=== PATIENT | female | born 1935 | race Caucasian/White ===

== ENCOUNTER 2016-12-10 12:20 | Inpatient (IN) | payer MEDICARE ==
--- NOTE | ~2016-12-10 | DS ---
Discharge Summary [facility] [address] [place]. [address] NAME: MERT BORJAS : 33 STATUS : DIS IN PAT#: [id number] AGE: 81 ADM/REG DATE : 12/11/16 MR#: [id number] REPORT SERV DATE: 12/21/16 DICTATED BY: ARABELLA MASTERS DATE: 12/18/16 REPORT STATUS : Draft TRANSCRIBED BY: MODL DATE: 12/18/16 ADMISSION DATE: 12/11/2016 DISCHARGE DATE: 12/17/2016 CONDITION ON DISCHARGE: Stable. DISPOSITION: Discharged to home. DIAGNOSES ON DISCHARGE: Include: 1. Possible transient ischemic attack. 2. Acute cerebrovascular accident has been ruled out after she had a normal MRI, normal other imaging studies, which will be dictated below. 3. Paresthesias of unknown etiology, which have somewhat stabilized. 4. Urinary tract infection with urine culture positive for enterococcus, which may have been responsible for the mild confusion that the patient experienced when she came in. 5. Hypertension, which is stable. 6. Gastroesophageal reflux disease, which is stable. 7. History of breast cancer status post mastectomy-stable. 8. Chronic kidney disease, stage II, which is stable also. BRIEF HOSPITAL COURSE: The patient is an 81-year-old white female patient, who presented with symptoms of mild confusion and was brought in by family because they thought that she was having a stroke. She was admitted to the hospital as an inpatient and a neurology consult was obtained. A B12 and folic acid levels were obtained. Lipid profile was obtained and the patient did get CT scan of the brain and also an MRI with an MRA. All the above results came back consistent with no acute stroke whatsoever. The patient, however, had wudj-sx-pehrtugl dementia consistent with the brain atrophy that all the above tests showed. Neurology decided to go ahead and do a 24-hour EEG on this patient. The EEG came back completely normal with no evidence of any seizure activity or any other focal abnormalities. Neurology then decided to do a lumbar puncture, which also was non-equivocal and nondiagnostic at this time. However, during the workup, it was discovered that the patient had a urinary tract infection with urine culture positive for enterococcus for which she was treated while in the hospital. Anyway during hospitalization with symptomatic and supportive care, her mental status improved significantly. Hence, she is being sent home after resolution of her confusion and she is almost back at baseline. Son, however, reports mild episodes of this off and on and thinks that this could be dementia; however, the patient does have a neurologist, Dr. Kemi Banks to follow up with as an outpatient too. Hence, she is being sent home after stabilizing and treating with supportive and symptomatic care and all the other workup with the following medications: Relafen 250 mg once a day, Lialda or mesalamine 1.2 g p.o. daily, Toprol-XL 25 mg p.o. daily, Protonix 40 mg p.o. daily, aspirin 81 mg p.o. daily, multivitamins one tablet p.o. daily, Plavix 75 mg p.o. daily, lisinopril 10 mg p.o. daily, and levofloxacin 500 mg p.o. daily to complete the course of her antibiotics for the enterococcal UTI. Also of note in her discharge diagnosis is to be noted history of Crohn disease in the past, which is why the patient is on mesalamine. However, this is not the reason for Discharge Summary [address] [address] NAME: MERT BORJAS : 33 STATUS : DIS IN PAT#: [id number] AGE: 81 ADM/REG DATE : 12/11/16 MR#: [id number] REPORT SERV DATE: 12/21/16 DICTATED BY: ARABELLA MASTERS DATE: 12/18/16 REPORT STATUS : Draft TRANSCRIBED BY: MODL DATE: 12/18/16 hospitalization or admission to the hospital this time and this Crohn disease is very well controlled with Lialda and has not flared up at this time, it is to be noted. The most recent lab results I have on this patient include an ammonia level that is normal at 25 and as mentioned above, lumbar puncture that got a normal CSF results. Electrolyte profile that shows sodium of 140, potassium 4.3, BUN of 19, creatinine of 1.2. Hemoglobin and hematocrit that are stable at 13.8 and 40.1. Platelet count is slightly low at 139. WBC count is normal at 4.9. Urine culture as mentioned above grew greater than 100,000 colony count per mL of enterococcus, which is reason for treating continuously with Levaquin to finish the course of antibiotics. The patient also states that she will follow up with her PCP and bring up the issue of recurrent UTIs as an outpatient for which she may want to be referred to a urologist. As mentioned above, imaging studies include brain CT with contrast, MRI of the brain, and MRA and EEG, which have all come back with no acute abnormalities. Also of note, her sedimentation rate has come back normal at 11 and her TSH has come back normal at 1.9, and her hemoglobin A1c is also normal at 5.3. Lipid profile shows an LDL of 90. HDL is 45 and triglycerides 155. CK-MB, folic acid, and B12 were all normal. Troponin I is also normal. So, she is being sent home in stable condition and I have spent about 40 minutes in coordinating discharge care of this patient, including iwdy-nk-lzti encounter and summarizing this discharge. FLORA/MALISSA Arabella Masters M.D. / [id number] CC: Sarah Bernstein M.D.
--- NOTE | ~2016-12-10 | HP ---
History And Physical [place] [id number] [facility] [place]. [address] NAME: MERT BORJAS : 33 STATUS : ADM IN PAT#: [id number] AGE: 81 ADM/REG DATE : 12/10/16 MR#: [id number] REPORT SERV DATE: 12/10/16 DICTATED BY: POP DAVIS DATE: 12/10/16 REPORT STATUS : Draft TRANSCRIBED BY: MALISSA DATE: 12/10/16 DATE OF ADMISSION: 12/10/2016 NEUROLOGIST: Kemi Banks M.D. GI: Greg Galvez M.D. CHIEF COMPLAINT: "I have been having spells again." HISTORY OF PRESENT ILLNESS: An 81-year-old white female with a history of possible TIA; hypertension; diverticular disease; history of breast cancer, status post left mastectomy, now in remission, presents to the ER after having several spells. She describes these spells as having a tingling sensation. Her noted that she had some right upper extremity weakness yesterday that eventually resolved, but he does not know how long it took for her right arm to get back to fully functioning. At that time, she did not seek medical attention. She says that she has been on the couch for the past couple of days and she says that she has a hard time getting up; however, she was able to ambulate herself out of the house and into the emergency room today without any issues. The patient is accompanied by her and two other friends and two friends in the room. One of her friends noted that she had some facial tingling, that lasted for about 4 minutes, that had occurred while she was in the ER. She also has tingling in her legs, that eventually go away. She said she had an episode of a TIA two years ago and at [facility], she was diagnosed with a possible TIA at [place]. She says that she got a CT scan of her head done, but is not sure if she had an MRI done. She finally followed up with Dr. Banks about a month ago and the patient states that she was going to review her imaging and her labs and get back to her. She has not had an MRI done recently that I am aware of. She thinks she may have had one done at [place] and [facility], but is not sure. Her friend says that she has been having some slurred speech. During my interview, there were absolutely no neurological deficits. She does take aspirin and Plavix daily. Of note, has a reaction to Crestor, which causes her to have cramps. She has not notified Dr. Boyce of her neurological complaints. She denies any fever, chills, nausea, vomiting, chest pain, or shortness of breath. PAST MEDICAL HISTORY: 1. Hypertension. 2. Diverticular disease. 3. Hemorrhoids. 4. Breast cancer. PAST SURGICAL HISTORY: Mastectomy. No chemotherapy or radiation treatment. FAMILY HISTORY: Her father of a stroke at the age of 93. Her sister has leg problems. SOCIAL HISTORY: She is . She has two children. She is for 61-62 years. Denies any drinking or illegal drugs. History And Physical [address] [address] NAME: MERT BORJAS : 33 STATUS : ADM IN [facility]#: [id number] AGE: 81 ADM/REG DATE : 12/10/16 MR#: [id number] REPORT SERV DATE: 12/10/16 DICTATED BY: POP DAVIS DATE: 12/10/16 REPORT STATUS : Draft TRANSCRIBED BY: MALISSA DATE: 12/10/16 PHYSICAL EXAMINATION: VITAL SIGNS: Blood pressure is 181/74, temperature is 97.2, pulse is 85, respirations 21, and saturating 97% on room air. GENERAL: The patient is in no acute distress, alert and oriented x3, very pleasant. HEENT: Normocephalic and atraumatic head. Extraocular muscles are intact. Oropharynx is clear. NECK: Supple. No JVD. CARDIAC: Regular rhythm. No murmurs, rubs, or gallops. PULMONARY: Clear to auscultation bilaterally. ABDOMEN: Soft, nontender, and nondistended. Positive bowel sounds. EXTREMITIES: Show no clubbing, cyanosis, or edema. NEUROLOGIC: No focal deficits. SKIN: Warm and dry. PSYCHIATRIC: The patient is cooperative. Mood is appropriate. LABORATORY DATA: Labs show a white blood cell count 6.6, hemoglobin 14.1, and platelet 170. Creatinine 1.41. Troponin is negative. Chest x-ray shows cardiomegaly. CT scan of the brain without contrast shows excellent appearance of the brain for age with mild volume loss and no acute findings. EKG shows sinus rhythm, left bundle-branch block. IMPRESSION: 1. Possible transient ischemic attack. 2. Paresthesias of unknown etiology. 3. Hypertension. 4. Reflux. 5. History of breast cancer, status post mastectomy, in remission. 6. Possible chronic kidney disease, stage III versus acute kidney injury. PLAN: 1. The plan is to do an MRI of her brain stroke protocol. 2. She already had an echocardiogram six months ago, no need to repeat at this time. She had a nuclear stress test done in 2014, which showed no evidence of ischemia with a preserved ejection fraction. We will consult Neurology for further evaluation. We will obtain a B12 and folic acid level. Continue her aspirin and Plavix and check a lipid panel. We will try to obtain records Dr. Banks's office. 3. The patient is a DNR/DNI. We will admit her to obs, pending MRI results, likely to go home the following day. BENI/MALISSA Pop Davis MD / [id number] History And Physical [address] [address] NAME: MERT BORJAS : 33 STATUS : ADM IN [facility]#: [id number] AGE: 81 ADM/REG DATE : 12/10/16 MR#: [id number] REPORT SERV DATE: 12/10/16 DICTATED BY: POP DAVIS DATE: 12/10/16 REPORT STATUS : Draft TRANSCRIBED BY: MODL DATE: 12/10/16 CC: MD Rashad Cui M.D. Adele Ackell, M.D.
--- NOTE | ~2016-12-10 | CN ---
Consultation Report [facility] [address] [place]. [address] NAME: MERT BORJAS : 33 STATUS : ADM Alicia PAT#: [id number] AGE: 81 ADM/REG DATE : 12/10/16 MR#: [id number] REPORT SERV DATE: 12/11/16 DICTATED BY: JANNA HAWTHORNE DATE: 12/11/16 REPORT STATUS : Draft TRANSCRIBED BY: MODNash DATE: 12/11/16 NEUROLOGY CONSULTATION DATE OF CONSULTATION: 12/11/2016 REASON FOR CONSULTATION: Possible stroke. HOSPITALIST: Johnson Carbone MD NEUROLOGIST: Kemi Banks M.D. HISTORY OF PRESENT ILLNESS: The patient is an 81-year-old female who was admitted to the hospital yesterday evening. She stated that she had one of her episodes prior to admission. These episodes started approximately two years ago and have increased in frequency, but not necessarily intensity. Now, she is having approximately one week. These episodes consist of sudden onset of numbness in either the right or left arm and the ipsilateral side of her face. They lasts approximately two to three minutes and then resolves. She has associated dysarthria and blurred vision. She also mentions that she has had a dull headache every day for the last week. When questioned more extensively, she does have a history of migraines in her younger years. She denies any balance issues. She denies any weakness in the extremities. She also denies any photophobia, phonophobia, nausea, or vomiting. The patient mentions that she does not know when these episodes are going to start. She has no aura. After the episodes are over, she returns back to her "normal self." PAST MEDICAL HISTORY: TIA, hypertension, diverticulitis, breast cancer (mastectomy) but no chemo or radiation, hemorrhoids, GERD, possible chronic kidney disease, and history of migraines. PAST SURGICAL HISTORY: Bilateral mastectomy. HOME MEDICATION LIST: Includes aspirin 81 mg daily, calcium with vitamin D daily, Plavix 75 mg daily, Flonase nasal spray daily, Prinivil 10 mg daily, Lialda 1.2 g daily, Toprol-XL 25 mg daily, one multivitamin daily, Relafen 250 mg daily, Protonix 40 mg daily, and Metamucil one packet daily. ALLERGIES: SULFA, MACROBID, AND CRESTOR. SOCIAL HISTORY: The patient is . She has two children. She does not smoke, drink, or use recreational drugs. FAMILY HISTORY: The patient's mother at age of 66 from a brain tumor. Her father at the age of 96 from stroke. She has one sister who is relatively healthy. REVIEW OF SYSTEMS: Consultation Report [address] [place]. [address] NAME: MERT BORJAS : 33 STATUS : ADM Alicia PAT#: [id number] AGE: 81 ADM/REG DATE : 12/10/16 MR#: [id number] REPORT SERV DATE: 12/11/16 DICTATED BY: JANNA HAWTHORNE DATE: 12/11/16 REPORT STATUS : Draft TRANSCRIBED BY: MALISSA DATE: 12/11/16 Please refer to HPI for pertinent positives. PHYSICAL EXAMINATION: VITAL SIGNS: The patient is an 81-year-old female, who stands 5 feet 3 inches tall, and weighs 150 pounds. She is afebrile. Heart rate 82, respiratory rate 20, O2 saturations on room air 96%, blood pressure 118/57. NEURO: The patient is alert and oriented x4, pleasant, communicates appropriately. Affect is bright. Speech is clear. Language is fluent. Pupils are 3 mm, PERRLA. Cranial nerves II through XII are intact. She can move all extremities x4. Cmqxgr-lu-rsnr, no ataxia. Undb-oa-tcbb, no ataxia. No pronator drift. Upper extremity strength 4/5. Upper DTRs 2+ bilaterally. No sensory deficits. Lower extremity strength is 4/5. Patellar reflexes 2+ bilaterally. Downgoing toes. No sensory deficits. NECK: No carotid bruits, JVD, or thyromegaly. CHEST: Lung sounds clear. CARDIAC: Regular rate and rhythm. CBC is normal. BMP normal except the creatinine is 1.41. Cholesterol values are somewhat elevated. CT of the brain, no acute changes. NIH stroke scale is 0. ASSESSMENT/PLAN: 1. Possible transient ischemic attack or vertebral basilar insufficiency. At this point, the patient will undergo an MRI of the brain without gadolinium and an MRA of the head and neck with gadolinium. She will also have an echocardiogram. She will be continued on aspirin 325 mg, Plavix 75 mg, and Lipitor 80 mg. At this point, she will not need physical therapy, occupational therapy, speech therapy, or will not require rehab. 2. Possible seizure, although this is less likely. She will undergo an EEG prior to her MRI since she will need to be sedated for claustrophobia. 3. Daily headache. The patient will be administered p.r.n. Tylenol. Lab work will be checked which would include a CPK and sedimentation rate to rule out giant-cell arteritis and again she will undergo imaging. Thank you again for including us in consultation. We will continue to follow with you. REILLY/MALISSA Janna Hawthorne, ACNP-BC / [id number] CC: MD Rashad Cui M.D. Consultation Report [address] [address] NAME: MERT BORJAS : 33 STATUS : ADM Alicia PAT#: [id number] AGE: 81 ADM/REG DATE : 12/10/16 MR#: [id number] REPORT SERV DATE: 12/11/16 DICTATED BY: JANNA HAWTHORNE DATE: 12/11/16 REPORT STATUS : Draft TRANSCRIBED BY: MALISSA DATE: 12/11/16 Kemi Banks M.D.
--- NOTE | ~2016-12-10 | EEG ---
Electroencephalogram [facility] [address] [facility] [place]. [address] NAME: MERT BORJAS : 33 STATUS : DIS IN PAT#: [id number] AGE: 81 ADM/REG DATE : 12/11/16 MR#: [id number] REPORT SERV DATE: 12/20/16 DICTATED BY: KALA EMERY DATE: 12/20/16 REPORT STATUS : Draft TRANSCRIBED BY: MODL DATE: 12/20/16 EEG NUMBER: [id number]. DATE OF EEG: From 12/15/2016 through 12/16/2016. REASON FOR REQUEST: Recurrent episodes of possible seizures, episodes of abnormal behavior and slurred speech, stereotypy. The patient's EEG was reviewed. She was noted to be alert, drowsy, and asleep throughout the study. Collodion was utilized to fixate the electrodes. This study was of excellent technical quality. The patient continuous clinical research monitor was placed and reviewed in addition to the patient's EEG activity. The background activity consisted of moderate to lower voltage, relatively well-organized, nine cycles per second located in the posterior head regions. This activity appeared to attenuate at times with the eye opening maneuvers. Moderate amount of movement and muscle artifact was present. For most part, symmetrical eye blinking artifact was symmetrical. The patient's clinical research monitor showed widened QRS complex ? Pacemaker artifact. No cardiac arrhythmias were detected. The patient's EEG activity remains bilaterally synchronous. No focal or paroxysmal abnormalities were seen during the full 24-hour recording. During sleep appropriate amount of slower activity was seen distributed symmetrically. The patient did not go to stage 3 or 4 sleep. No paroxysmal epileptiform activity was seen. Video recording was utilized. The patient for the most part remained resting in bed except for several episodes of using a portable-potty chair at her bedside. Family member was noted to be present in the room intermittently, noted on the video monitor. This was an extensive review of the 24-hour EEG recording. Appropriate amount of bitemporal slowing was seen during drowsiness, a few episodes of symmetrical sleep spindles was noted in light sleep. Vertex sharp activity and K-complexes were noted. However, for the most part, the EEG remained symmetrical with no evidence of paroxysmal activity. Rare episode of slowing noted in the left frontal temporal region. After recording time of 20 hours 30 minutes and 06 seconds, on 12/16/2016 at 09:24:44. This however does not represent activity too, definitively state that the patient has epileptiform discharges. IMPRESSION: THIS EEG IS ESSENTIALLY NORMAL FOR THE PATIENT'S AGE . NO PAROXYSMAL EPILEPTIFORM ACTIVITY WAS SEEN DURING THIS STUDY. DROWSINESS, LIGHT SLEEP, AND AWAKE PORTION OF THE RECORDING SHOWED NO EVIDENCE OF PAROXYSMAL OR EPILEPTIFORM DISCHARGES. THE PATIENT'S PROPELLANT CHARGE LOADER SHOWED SINUS RHYTHM, RATE BETWEEN 60 TO 72 BEATS PER MINUTE. CLINICAL CORRELATION IS RECOMMENDED. RODGER/MALISSA Kala Emery MD / [id number] CC: Nishi Soto M.D.
--- NOTE | ~2016-12-10 | EEG ---
Electroencephalogram [facility] [address] [place]. [address] NAME: MERT BORJAS : 31 STATUS : ADM IN PAT#: [id number] AGE: 81 ADM/REG DATE : 12/11/16 MR#: [id number] REPORT SERV DATE: 12/11/16 DICTATED BY: DATE: REPORT STATUS : Draft TRANSCRIBED BY: MODL DATE: 12/11/16 CLINICAL INDICATION: Encephalopathy. DESCRIPTION: This EEG was performed using 10/20 electrode placement system. During the EEG study, symmetric background activity was noted with predominant occipital rhythm of roughly 11 hertz. Photic stimulation was performed with appropriate driving response. Hyperventilation was not performed secondary to the patient's underlying medical condition. During the EEG study, the patient achieved drowsy, stage I and II sleep, with appropriate sleep spindles as well as K-complexes. No focal abnormalities, seizure activity, or seizure discharge was noted. INTERPRETATION: This EEG study obtained during awake, drowsy as well as stage I and II sleep may be considered within normal limits. No focal abnormalities, seizure activity, or seizure discharge was seen. No electrographic seizure was observed. Negative EEG does not preclude the diagnosis of seizure disorder. Clinical correlation is recommended. [facility]/MODL Jorge Jimenes MD / [id number] CC: MD Rashad Cui M.D.
[2016-12-10 11:53] LABS: BASOPHILS 0.2 %; BASOPHILS ABSOLUTE 0.01 10/3/uL (0.0-0.16); EOSINOPHILS 0.8 %; EOSINOPHILS ABSOLUTE 0.05 10/3/uL (0.0-0.53); ER CBC TAT 0 Hrs 07 Mins; HEMATOCRIT 42.1 % (36.0-48.0); HEMOGLOBIN 14.1 g/dL (12.0-16.0); IMMATURE GRANULOCYTES 0.2 %; IMMATURE GRANULOCYTES ABSOLUTE 0.01 10/3/uL (0.0-0.11); LYMPHOCYTES 19.4 %; LYMPHOCYTES ABSOLUTE 1.28 10/3/uL (0.67-4.30); MEAN CORPUS HGB CONC 33.5 g/dL (32.0-36.0); MEAN CORPUSCULAR HEMOGLOB 29.9 pg (26.0-34.0); MEAN CORPUSCULAR VOLUME 89.2 fL (80-100); MEAN PLATELET VOLUME 10.4 fL (9.2-13.0); MONOCYTES 7.9 %; MONOCYTES ABSOLUTE 0.52 10/3/uL (0.21-1.20); NEUTROPHILS 71.5 %; NEUTROPHILS ABSOLUTE 4.73 10/3/uL (2.02-8.40); PLATELET COUNT 170 10/3/uL (150-400); RBC DISTRIBUTION WIDTH 13.5 % (12.0-16.0); RED CELL COUNT 4.72 10/6/uL (4.0-5.6); WHITE BLOOD CELLS 6.6 10/3/uL (4.5-10.5)
[2016-12-10 11:54] LABS: MANUAL DIFF NO %
[2016-12-10 12:00] LABS: INTERNATIONAL NORMAL RATI 1.1 UNITS (-); PARTIAL THROMBO TIME 35.2 SEC (22.5-37.2); PROTIME (NOT ORD) 14.4 SEC (12.0-14.5)
[2016-12-10 12:16] LABS: A/G RATIO 1.1 (0.7-1.9); ALBUMIN 3.9 G/DL (3.5-5.0); CALCIUM, SERUM 9.4 MG/DL (8.5-10.4); CHLORIDE, SERUM 100 MMOL/L (96-112); CO2 (CARBON DIOXIDE) 28 MMOL/L (24-34); CREATININE 1.41 MG/DL (0.55-1.02); GFR AFRICAN AMERICAN 40 ML/MIN (>=60); GFR NON AFRICAN AMERICAN 34 ML/MIN (>=60); GLOBULIN 3.4 G/DL (2.5-4.1); GLUCOSE, SERUM 97 MG/DL (60-99); POTASSIUM, SERUM 4.1 MMOL/L (3.5-5.3); SGOT(AST) 14 U/L (5-40); SGPT(ALT) 20 U/L (5-65); SODIUM, SERUM 138 MMOL/L (135-148); TOTAL PROTEIN 7.3 G/DL (6.0-8.5); TROPONIN I <0.02 NG/ML (<0.05)
[2016-12-10 12:17] LABS: ALKALINE PHOSPHATASE 60 U/L (45-117); BUN (BLOOD UREA NITROGEN) 17 MG/DL (6-23)
[2016-12-10] MEDS ORDERED: TOPXL25 PO (16:05)
[2016-12-10] MEDS ORDERED: RELA5 PO (16:05)
[2016-12-10] MEDS ORDERED: LIALDA1.2 GM PO (16:05)
[2016-12-10] MEDS ORDERED: PROTONIX PO (16:07)
[2016-12-10] MEDS ORDERED: THERGRANM PO (16:08)
[2016-12-10] MEDS ORDERED: METPAKSF PO (16:08)
[2016-12-10] MEDS ORDERED: ASAEC PO (16:08)
[2016-12-10] MEDS ORDERED: PLAVIX PO (16:08)
[2016-12-10] MEDS ORDERED: CALTRA600D PO (16:08)
[2016-12-10] MEDS ORDERED: FLONASE NAS (16:09)
[2016-12-10] MEDS ORDERED: PRIN10 PO (16:09)
[2016-12-10 23:10] LABS: HDL CHOLESTEROL 45 MG/DL (> 49); TRIGLYCERIDE 155 MG/DL (< 150); TROPONIN I <0.02 NG/ML (<0.05)
[2016-12-10 23:13] LABS: CHOL/HDL RATIO(NOT ORDER) 3.7 (0-5); CHOLESTEROL 166 MG/DL (< 200); CK-MB 0.5 NG/ML; CPK 49 U/L (0-200); FOLATE 74.5 NG/ML (>5.2); LDL CHOLESTEROL 90 MG/DL (< 130); NON-HDL CHOLESTEROL 121 MG/DL (< 160)
[2016-12-11 06:55] LABS: CPK 42 U/L (0-200); TROPONIN I <0.02 NG/ML (<0.05)
[2016-12-11 06:56] LABS: CK-MB < 0.5 NG/ML
[2016-12-11 11:31] LABS: FREE T4 1.16 NG/DL (0.76-1.46); ULTRASENSITIVE TSH 1.96 MCIU/ML (0.358-3.740)
[2016-12-11 16:14] LABS: TROPONIN I <0.02 NG/ML (<0.05)
[2016-12-11 16:15] LABS: CK-MB < 0.5 NG/ML; CPK 113 U/L (0-200)
[2016-12-11 22:35] LABS: CREATININE 1.6 MG/DL (0.55-1.02)
[2016-12-12 04:09] LABS: BASOPHILS 0.2 %; BASOPHILS ABSOLUTE 0.01 10/3/uL (0.0-0.16); EOSINOPHILS 2.2 %; EOSINOPHILS ABSOLUTE 0.12 10/3/uL (0.0-0.53); HEMATOCRIT 39.3 % (36.0-48.0); HEMOGLOBIN 13.2 g/dL (12.0-16.0); IMMATURE GRANULOCYTES 0.2 %; IMMATURE GRANULOCYTES ABSOLUTE 0.01 10/3/uL (0.0-0.11); LYMPHOCYTES ABSOLUTE 1.47 10/3/uL (0.67-4.30); MANUAL DIFF NO %; MEAN CORPUS HGB CONC 33.6 g/dL (32.0-36.0); MEAN CORPUSCULAR HEMOGLOB 29.7 pg (26.0-34.0); MEAN CORPUSCULAR VOLUME 88.5 fL (80-100); MEAN PLATELET VOLUME 10.3 fL (9.2-13.0); MONOCYTES 7.9 %; MONOCYTES ABSOLUTE 0.43 10/3/uL (0.21-1.20); NEUTROPHILS 62.5 %; NEUTROPHILS ABSOLUTE 3.41 10/3/uL (2.02-8.40); PLATELET COUNT 147 10/3/uL (150-400); RBC DISTRIBUTION WIDTH 13.7 % (12.0-16.0); RED CELL COUNT 4.44 10/6/uL (4.0-5.6); WHITE BLOOD CELLS 5.5 10/3/uL (4.5-10.5)
[2016-12-12 04:18] LABS: BUN (BLOOD UREA NITROGEN) 29 MG/DL (6-23); CALCIUM, SERUM 8.8 MG/DL (8.5-10.4); CHLORIDE, SERUM 100 MMOL/L (96-112); CO2 (CARBON DIOXIDE) 27 MMOL/L (24-34); CREATININE 1.47 MG/DL (0.55-1.02); GFR AFRICAN AMERICAN 38 ML/MIN (>=60); GFR NON AFRICAN AMERICAN 33 ML/MIN (>=60); GLUCOSE, SERUM 96 MG/DL (60-99); POTASSIUM, SERUM 4.1 MMOL/L (3.5-5.3); SODIUM, SERUM 139 MMOL/L (135-148)
[2016-12-12 19:07] LABS: ASCORBIC ACID (UR NOT ORDER) 40 (NEG); BILIRUBIN, URINE NEGATIVE (NEG); KETONE, URINE NEGATIVE (NEG); LEUKOCYTE ESTERASE(NOT OR LARGE (NEG); WBC (NOT ORDERED) (RFLEX) 8 (0-5)
[2016-12-13 07:01] LABS: BASOPHILS 0.5 %; BASOPHILS ABSOLUTE 0.02 10/3/uL (0.0-0.16); EOSINOPHILS 3.9 %; EOSINOPHILS ABSOLUTE 0.16 10/3/uL (0.0-0.53); HEMOGLOBIN 11.7 g/dL (12.0-16.0); IMMATURE GRANULOCYTES 0.2 %; IMMATURE GRANULOCYTES ABSOLUTE 0.01 10/3/uL (0.0-0.11); LYMPHOCYTES 27.5 %; LYMPHOCYTES ABSOLUTE 1.12 10/3/uL (0.67-4.30); MEAN CORPUS HGB CONC 33.7 g/dL (32.0-36.0); MEAN PLATELET VOLUME 9.7 fL (9.2-13.0); MONOCYTES 8.4 %; MONOCYTES ABSOLUTE 0.34 10/3/uL (0.21-1.20); NEUTROPHILS 59.5 %; NEUTROPHILS ABSOLUTE 2.42 10/3/uL (2.02-8.40); PLATELET COUNT 116 10/3/uL (150-400); RBC DISTRIBUTION WIDTH 13.3 % (12.0-16.0); WHITE BLOOD CELLS 4.1 10/3/uL (4.5-10.5)
[2016-12-13 07:03] LABS: HEMATOCRIT 34.7 % (36.0-48.0); MANUAL DIFF NO %
[2016-12-13 07:21] LABS: CHLORIDE, SERUM 101 MMOL/L (96-112); CREATININE 1.15 MG/DL (0.55-1.02); GFR AFRICAN AMERICAN 51 ML/MIN (>=60); GFR NON AFRICAN AMERICAN 44 ML/MIN (>=60); GLUCOSE, SERUM 87 MG/DL (60-99); POTASSIUM, SERUM 3.8 MMOL/L (3.5-5.3); SODIUM, SERUM 133 MMOL/L (135-148)
[2016-12-13 07:23] LABS: BUN (BLOOD UREA NITROGEN) 24 MG/DL (6-23); CALCIUM, SERUM 7.8 MG/DL (8.5-10.4); CO2 (CARBON DIOXIDE) 22 MMOL/L (24-34)
[2016-12-14 06:19] LABS: CHLORIDE, SERUM 107 MMOL/L (96-112); CO2 (CARBON DIOXIDE) 21 MMOL/L (24-34); CREATININE 1.01 MG/DL (0.55-1.02); GFR AFRICAN AMERICAN 60 ML/MIN (>=60); GFR NON AFRICAN AMERICAN 51 ML/MIN (>=60); GLUCOSE, SERUM 83 MG/DL (60-99); SODIUM, SERUM 138 MMOL/L (135-148)
[2016-12-14 06:32] LABS: BUN (BLOOD UREA NITROGEN) 20 MG/DL (6-23); CALCIUM, SERUM 8.8 MG/DL (8.5-10.4); POTASSIUM, SERUM 4.2 MMOL/L (3.5-5.3)
[2016-12-14 09:16] LABS: BASOPHILS 0.9 %; BASOPHILS ABSOLUTE 0.05 10/3/uL (0.0-0.16); EOSINOPHILS 4.6 %; EOSINOPHILS ABSOLUTE 0.26 10/3/uL (0.0-0.53); HEMOGLOBIN 12.5 g/dL (12.0-16.0); IMMATURE GRANULOCYTES 0.2 %; IMMATURE GRANULOCYTES ABSOLUTE 0.01 10/3/uL (0.0-0.11); LYMPHOCYTES 25.2 %; LYMPHOCYTES ABSOLUTE 1.44 10/3/uL (0.67-4.30); MEAN CORPUS HGB CONC 32.7 g/dL (32.0-36.0); MEAN CORPUSCULAR HEMOGLOB 29.6 pg (26.0-34.0); MEAN CORPUSCULAR VOLUME 90.5 fL (80-100); MEAN PLATELET VOLUME 10.7 fL (9.2-13.0); NEUTROPHILS 62.1 %; NEUTROPHILS ABSOLUTE 3.55 10/3/uL (2.02-8.40); PLATELET COUNT 130 10/3/uL (150-400); RBC DISTRIBUTION WIDTH 13.5 % (12.0-16.0); RED CELL COUNT 4.22 10/6/uL (4.0-5.6); WHITE BLOOD CELLS 5.7 10/3/uL (4.5-10.5)
[2016-12-14 09:17] LABS: HEMATOCRIT 38.2 % (36.0-48.0); MANUAL DIFF NO %
[2016-12-14 16:49] LABS: C-REACTIVE PROTEIN 6.8 MG/L (<8.0)
[2016-12-15 07:53] LABS: BASOPHILS 0.2 %; BASOPHILS ABSOLUTE 0.01 10/3/uL (0.0-0.16); EOSINOPHILS 3.7 %; EOSINOPHILS ABSOLUTE 0.18 10/3/uL (0.0-0.53); HEMOGLOBIN 12.5 g/dL (12.0-16.0); IMMATURE GRANULOCYTES 0.2 %; IMMATURE GRANULOCYTES ABSOLUTE 0.01 10/3/uL (0.0-0.11); LYMPHOCYTES 31.3 %; LYMPHOCYTES ABSOLUTE 1.52 10/3/uL (0.67-4.30); MEAN CORPUS HGB CONC 33.8 g/dL (32.0-36.0); MEAN CORPUSCULAR HEMOGLOB 29.7 pg (26.0-34.0); MEAN CORPUSCULAR VOLUME 87.9 fL (80-100); MEAN PLATELET VOLUME 10.8 fL (9.2-13.0); MONOCYTES 5.4 %; MONOCYTES ABSOLUTE 0.26 10/3/uL (0.21-1.20); NEUTROPHILS 59.2 %; NEUTROPHILS ABSOLUTE 2.87 10/3/uL (2.02-8.40); PLATELET COUNT 156 10/3/uL (150-400); RBC DISTRIBUTION WIDTH 13.6 % (12.0-16.0); RED CELL COUNT 4.21 10/6/uL (4.0-5.6); WHITE BLOOD CELLS 4.9 10/3/uL (4.5-10.5)
[2016-12-15 07:56] LABS: MANUAL DIFF NO %
[2016-12-15 08:03] LABS: BUN (BLOOD UREA NITROGEN) 16 MG/DL (6-23); CALCIUM, SERUM 8.6 MG/DL (8.5-10.4); CHLORIDE, SERUM 105 MMOL/L (96-112); CO2 (CARBON DIOXIDE) 27 MMOL/L (24-34); GFR AFRICAN AMERICAN 54 ML/MIN (>=60); GFR NON AFRICAN AMERICAN 46 ML/MIN (>=60); GLUCOSE, SERUM 88 MG/DL (60-99); SODIUM, SERUM 141 MMOL/L (135-148)
[2016-12-15 08:04] LABS: POTASSIUM, SERUM 4.4 MMOL/L (3.5-5.3)
[2016-12-16 08:02] LABS: HEMATOCRIT 40.1 % (36.0-48.0); HEMOGLOBIN 13.8 g/dL (12.0-16.0); PLATELET COUNT 139 10/3/uL (150-400)
[2016-12-16 08:12] LABS: BUN (BLOOD UREA NITROGEN) 19 MG/DL (6-23); CALCIUM, SERUM 9.3 MG/DL (8.5-10.4); CHLORIDE, SERUM 103 MMOL/L (96-112); CO2 (CARBON DIOXIDE) 27 MMOL/L (24-34); CREATININE 1.27 MG/DL (0.55-1.02); GFR AFRICAN AMERICAN 45 ML/MIN (>=60); GFR NON AFRICAN AMERICAN 39 ML/MIN (>=60); GLUCOSE, SERUM 93 MG/DL (60-99); POTASSIUM, SERUM 4.3 MMOL/L (3.5-5.3); SODIUM, SERUM 140 MMOL/L (135-148)
[2016-12-16 14:40] LABS: TOTAL PROTEIN, CSF 33.9 MG/DL (15-45)
[2016-12-16 14:57] LABS: CSF APPEARANCE (NOT ORD) CLEAR (CLEAR); CSF BASO 0 % (NO REF RANGE); CSF COLOR (NOT ORD) COLORLESS (COLORLESS); CSF EOS 0 % (0-1); CSF LYMPH (NOT ORD) 0 % (28-96); CSF MONO 67 % (16-56); CSF RBC (NOT ORD) 2 MM3 (NO REFERENCE); CSF SEGS (NOT ORD) 33 % (0-7); CSF WBC (NOT ORD) 1 /uL (0-10); CSF XANTHROCHROMIA NEG (NEG)
[2016-12-17] MEDS ORDERED: LEVAQUIN5T PO (16:53)
== END 2016-12-17 18:52 | disposition home or self-care (01) | DRG 69 ==
LOC: ER 12:20 → 1SO 19:29
PROVIDERS: Emergency Medicine; Hospitalist; Internal Medicine; Nurse Practitioner; Nurse Practitioner Family; Psychiatry & Neurology Neurology
PROC: 009U3ZZ Drainage of Spinal Canal, Percutaneous Approach (ICD-10-PCS; principal; 2016-12-16)
PROC: B01BZZZ Fluoroscopy of Spinal Cord (ICD-10-PCS; 2016-12-16)
DX: G45.9 Transient cerebral ischemic attack, unspecified (principal); G93.40 Encephalopathy, unspecified; E72.4 Disorders of ornithine metabolism; N39.0 Urinary tract infection, site not specified; F03.90 Unspecified dementia, unspecified severity, without behavioral disturbance, psychotic disturbance, mood disturbance, and anxiety; E86.0 Dehydration; G40.909 Epilepsy, unspecified, not intractable, without status epilepticus; I44.7 Left bundle-branch block, unspecified; K52.9 Noninfective gastroenteritis and colitis, unspecified; I12.9 Hypertensive chronic kidney disease with stage 1 through stage 4 chronic kidney disease, or unspecified chronic kidney disease; N18.3 Chronic kidney disease, stage 3 (moderate); K21.9 Gastro-esophageal reflux disease without esophagitis; R51 Headache; M19.90 Unspecified osteoarthritis, unspecified site; B95.2 Enterococcus as the cause of diseases classified elsewhere; B96.20 Unspecified Escherichia coli [E. coli] as the cause of diseases classified elsewhere; E78.5 Hyperlipidemia, unspecified; Z66 Do not resuscitate; Z88.8 Allergy status to other drugs, medicaments and biological substances; Z85.3 Personal history of malignant neoplasm of breast; Z90.13 Acquired absence of bilateral breasts and nipples; Z86.73 Personal history of transient ischemic attack (TIA), and cerebral infarction without residual deficits; Z79.02 Long term (current) use of antithrombotics/antiplatelets; Z79.82 Long term (current) use of aspirin; Z79.899 Other long term (current) drug therapy; Z88.2 Allergy status to sulfonamides; Z88.1 Allergy status to other antibiotic agents
CPT/HCPCS: 62270; 70450; 70544; 70547; 70551; 71010; 77003; 80048; 80053; 80061; 81001; 82140; 82306; 82533; 82550; 82553; 82607; 82746; 82945; 83036; 83735; 84157; 84439; 84443; 84484; 85014; 85018; 85025; 85049; 85610; 85652; 85730; 86140; 87077; 87086; 87186; 89051; 93005; 95813; 95816; 97161-GP; 97165-GO; 99291; A9270-GY; C8929; G8978-CI-GP; G8979-CI-GP; G8980-CI-GP; G8987-CI-GO; G8988-CI-GO; G8989-CI-GO; J1956; Q9957